=== PATIENT | female | born 2000 | race African-American/Black ===

== ENCOUNTER 2020-07-15 11:20 | Emergency (ER) | payer BC ==
[2020-07-15] MEDS ORDERED: Dexamethasone 10 MG/ML VIAL ONE (11:42)
[2020-07-15] MEDS ORDERED: Ventolin HFA Inhaler 60 PUFF INHALER ONE (11:58)
== END 2020-07-15 13:26 | disposition home or self-care (01) ==
LOC: CSHERS 11:20
DX: J45.901 Unspecified asthma with (acute) exacerbation (principal); J20.8 Acute bronchitis due to other specified organisms
CPT/HCPCS: 87081; 87430; 96372; 99284; J1100

== ENCOUNTER 2020-07-27 15:32 | Emergency (ER) | payer BC | END 2020-07-27 16:04 | disposition home or self-care (01) | LOC: CSHERS 15:32 | DX: R11.2 Nausea with vomiting, unspecified (principal); J45.909 Unspecified asthma, uncomplicated | CPT/HCPCS: 99283 ==

== ENCOUNTER 2021-08-19 15:49 | Emergency (ER) | payer BC ==
[2021-08-19] MEDS ORDERED: Ondansetron ODT 4 MG TAB ONE (16:24)
[2021-08-19 16:58] LABS: #Basophils 0.1 10x3/uL (0.0-0.2); #Eosinphils 0.2 10x3/uL (0.0-0.5); #Monocytes 0.6 10x3/uL (0.0-1.1); #Neutrophils 4.5 10x3/uL (1.5-8.4); %Basophils 0.7 % (0.0-2.0); %Eosinophils 3.3 % (0.0-6.0); %Lymphocytes 25.7 % (18.0-47.0); Hemoglobin 6.8 g/dL (12.0-15.5); Mean Corpuscular Hemoglobin 20.7 pg (27.0-33.0); Mean Corpuscular Volume 69.2 fl (81.6-98.3); Mean Platelet Volume 8.3 fl (7.4-10.4); Platelet Count 456 10x3/uL (150-450); RBC Distribution Width 17.5 % (11.5-14.5); Red Blood Cell (RBC) Count 3.28 10x6/uL (3.90-5.03); White Blood Cell (WBC) Count 7.3 10x3/uL (3.5-10.5)
[2021-08-19 17:05] LABS: BHCG - Serum Negative (NEGATIVE); Pregs Control Background? CLEAR/WHITE (CLR/WHITE); Pregs Control Bar Appear? YES (CONTROL BAR)
[2021-08-19 17:10] LABS: ALT (SGPT) 13 U/L (8-55); AST (SGOT) 14 U/L (5-34); Albumin 4.5 g/dL (3.5-5.0); Alkaline Phosphatase 84 U/L (40-110); Anion Gap 16 mmol/L (10-20); BUN (Urea Nitrogen) 12 mg/dL (7.0-18.7); Bilirubin, Total 0.3 mg/dL (0.2-1.2); Calc. Creatinine Clearance 0 mL/min (70-130); Calcium 9.8 mg/dL (7.8-10.44); Carbon Dioxide 26 mmol/L (22-29); Chloride 105 mmol/L (98-107); Globulin 3.5 g/dL (2.4-3.5); Glucose 106 mg/dL (70-105); Lipase 27 U/L (8-78)
[2021-08-19 17:30] LABS: Sodium 143 mmol/L (136-145)
[2021-08-19 17:54] LABS: Anisocytosis SLIGHT = 6-15 cells (100X) (0-5/hpf); Hypochromia SLIGHT = 6-15 cells (100X) (0-5/hpf); Microcytosis SLIGHT = 6-15 cells (100X) (0-5/hpf); Ovalocytes SLIGHT = 2-5 cells (100X) (0-1/hpf); Platelet Morphology Comment Appears Increased; Polychromasia SLIGHT = 2-3 cells (100X) (0-2/hpf)
== END 2021-08-19 22:15 | disposition home or self-care (01) ==
LOC: CSHERS 15:49
DX: B34.9 Viral infection, unspecified (principal); D64.9 Anemia, unspecified; I10 Essential (primary) hypertension; J45.909 Unspecified asthma, uncomplicated
CPT/HCPCS: 36415; 36430; 80053; 83690; 84703; 85025; 86850; 86900; 86901; P9016; Q0162